=== PATIENT | female | born 1960 | race Caucasian/White ===

== ENCOUNTER 2024-08-13 08:36 | Day surgery (SDC) | payer OTHER ==
[2024-08-13 09:39] LABS: ANION GAP 13.8 (5-15); BUN/CREATININE RATIO 8.2 (14-18); CALCIUM 9.1 mg/dL (8.5-10.1); CREATININE 1.1 mg/dL (0.55-1.02); EST CRCL DRUG DOSING (CG) 50.31 mL/min; POTASSIUM,K 3.8 mEq/L (3.5-5.1)
[2024-08-13] MEDS ORDERED: Midazolam 1 MG/ML 2 ML SDV ONE (09:46)
[2024-08-13] MEDS ORDERED: HYDROmorphone 0.5 MG/0.5 ML Syringe ONE (09:46)
[2024-08-13] MEDS ORDERED: Ketamine 200 MG/20 ML MDV ONE (09:46)
[2024-08-13] MEDS ORDERED: Propofol 200 MG/20 ML SDV ONE (09:46)
[2024-08-13] MEDS ORDERED: fentaNYL 100 MCG/2 ML SDV ONE (09:46)
[2024-08-13] MEDS ORDERED: Ondansetron 4 MG/2 ML SDV ONE (09:47)
[2024-08-13] MEDS ORDERED: Lidocaine 1% 5 ML VIAL ONE (09:47)
[2024-08-13] MEDS ORDERED: Dexamethasone 4 MG/ML 5 ML MDV ONE (09:47)
[2024-08-13] MEDS: Citric Acid/Sodium Citrate Solution 30 ML Cup PO ONE (09:55)
[2024-08-13] MEDS: Famotidine 20 MG/2 ML SDV IVPUSH ONE (09:55)
[2024-08-13] MEDS ORDERED: Lactated Ringers 1,000 ML IV ONE (10:15)
[2024-08-13] MEDS ORDERED: ceFAZolin 2 GM Vial ONE (10:23)
[2024-08-13] MEDS ORDERED: fentaNYL 100 MCG/2 ML SDV IVPUSH PRN (10:44)
[2024-08-13] MEDS: EPINEPHrine 1 MG/ML SDV ONE (10:50)
[2024-08-13] MEDS: Ketorolac 30 MG/ML SDV IVPUSH SCH (11:46)
[2024-08-13] MEDS: HYDROmorphone 0.5 MG/0.5 ML Syringe IVPUSH PRN (11:49)
[2024-08-13] MEDS: Acetaminophen/HYDROcodone 325-5 MG Tab PO PRN (13:04)
[2024-08-13] MEDS: Acetaminophen/HYDROcodone 325-5 MG Tab PO ONE (15:27)
== END 2024-08-13 15:30 | disposition home or self-care (01) ==
LOC: JD.SDS 08:36
PROVIDERS: ATTEND Orthopaedic Surgery
DX: T84.84XA Pain due to internal orthopedic prosthetic devices, implants and grafts, initial encounter (principal); I07.1 Rheumatic tricuspid insufficiency; N39.0 Urinary tract infection, site not specified; K21.9 Gastro-esophageal reflux disease without esophagitis; Z79.899 Other long term (current) drug therapy
CPT/HCPCS: 29875; 36415; 80048; A9270; J0171; J0690; J1100; J1885; J2250; J2405; J2704; J3010; J3490; J7120; 01400